=== PATIENT | male | born 1985 | race Caucasian/White ===

== ENCOUNTER 2022-09-20 18:47 | Inpatient (IN) | payer BC ==
[2022-09-20] MEDS ORDERED: Morphine 2 MG/ML VIAL SLOW IVP PRN (19:34)
[2022-09-20] MEDS ORDERED: Ipratropium/Albuterol 3 ML NEB NEB PRN (19:34)
[2022-09-20] MEDS ORDERED: TETANUS, DIPHTHERIA TOX,ADULT (TDVAX) 0.5 ML VIAL IM ONE (19:34)
[2022-09-20] MEDS ORDERED: Ondansetron PF 4 MG/2 ML Vial IVP PRN (19:34)
[2022-09-20] MEDS ORDERED: traMADol HCl 50 MG TAB PO PRN ×2 (19:37→21:57)
[2022-09-20] MEDS ORDERED: Bupivacaine/Epinephrine 0.25% 30 ML VIAL ONE (19:39)
[2022-09-20] MEDS ORDERED: Morphine 4 MG/ML VIAL ONE (19:46)
[2022-09-20] MEDS ORDERED: Ibuprofen 200 MG TAB PO PRN (19:47)
[2022-09-20] MEDS ORDERED: fentaNYL PF 100 MCG/2 ML SYRINGE ONE (19:50)
[2022-09-20] MEDS ORDERED: HYDROmorphone 0.5 MG/0.5 ML SYRINGE ONE ×2 (19:51→22:34)
[2022-09-20] MEDS ORDERED: Ondansetron PF 4 MG/2 ML Vial ONE (20:18)
[2022-09-20] MEDS ORDERED: NEOSTIGMINE 3 MG/3 ML SYR 3 MG/3 ML SYRINGE ONE (20:18)
[2022-09-20] MEDS ORDERED: ePHEDrine Sulfate 50 MG/10 ML VIAL ONE (20:18)
[2022-09-20] MEDS ORDERED: PROPOFOL 200 MG/20 ML VIAL ONE (20:18)
[2022-09-20] MEDS ORDERED: Rocuronium Bromide 10 MG/ML (10ML VIAL) ONE (20:18)
[2022-09-20] MEDS ORDERED: GLYCOPYRROLATE/PF 0.2 MG/ML VIAL ONE (20:18)
[2022-09-20] MEDS ORDERED: Ketorolac Tromethamine 30 MG/ML VIAL ONE (20:18)
[2022-09-20] MEDS ORDERED: Lidocaine 1% PF 5 ML VIAL ONE (20:18)
[2022-09-20] MEDS ORDERED: Dexamethasone 20 MG/5 ML VIAL ONE (20:18)
[2022-09-20] MEDS ORDERED: Famotidine/PF 20 mg/2ml Vial SLOW IVP SCH (21:00)
[2022-09-20] MEDS ORDERED: HYDROmorphone 2 MG/ML VIAL SLOW IVP PRN (21:14)
[2022-09-20] MEDS ORDERED: Ondansetron HCl/PF 4 MG/2 ML Vial IVP PRN (21:14)
[2022-09-20] MEDS ORDERED: Promethazine HCl 25 MG/ML VIAL IM PRN (21:14)
[2022-09-20] MEDS ORDERED: PACU-Morphine 4MG/ML VIAL SLOW IVP PRN (21:14)
[2022-09-20] MEDS ORDERED: Bacitracin Zinc Ointment 30 gm TUBE ONE (21:37)
[2022-09-20] MEDS ORDERED: Fentanyl 250 MCG/5 ML VIAL ONE (22:07)
[2022-09-20] MEDS: Acetaminophen 325 MG TAB PO SCH (23:19)
[2022-09-20] MEDS: Senokot S 8.6-50 MG TAB PO SCH (23:19)
[2022-09-21] MEDS: traMADol HCl 50 MG TAB PO SCH ×3 (00:09→11:30)
[2022-09-21] MEDS: Sodium Chloride 0.9% 1,000 ML IV SCH ×2 (00:11→06:10)
[2022-09-21 01:02] VITALS: BMI 30.4
[2022-09-21] MEDS: Acetaminophen 325 MG TAB PO SCH ×3 (02:02→13:18)
[2022-09-21 06:16] LABS: #Monocytes 0.4 thou/uL (0.11-0.59); #Neutrophils 9.2 thou/uL (1.40-6.50); %Basophils 0.1 % (0.0-1.0); %Eosinophils 0.1 % (0.0-10.0); %Lymphocytes 9.3 % (21.0-51.0); %Monocytes 3.7 % (0.0-10.0); %Neutrophils 86.8 % (42.0-75.0); Hemoglobin 14.3 g/dL (14.0-18.0); Mean Corpuscular HGB CONC 32.6 g/dL (32.0-36.0); Mean Corpuscular Hemoglobin 28.9 pg (27.0-31.0); Mean Corpuscular Volume 88.4 fl (78.0-98.0); Mean Platelet Volume 8.2 fL (7.4-10.4); Platelet Count 156 10x3/uL (130-400); RBC Distribution Width 12.3 % (11.5-14.5); Red Blood Cell (RBC) Count 4.96 mill/uL (4.70-6.10); White Blood Cell (WBC) Count 10.5 10x3/uL (4.8-10.8)
[2022-09-21 06:29] LABS: INR-International Normal Ratio 1.1; PTT 26.4 sec (22.9-36.1); Prothrombin Time 14.1 sec (12.0-14.7)
[2022-09-21 06:40] LABS: Anion Gap 13 mmol/L (10-20); BUN (Urea Nitrogen) 18 mg/dL (8.9-20.6); Calc. Creatinine Clearance 132 mL/min (70-130); Calcium 8.4 mg/dL (7.8-10.44); Carbon Dioxide 19 mmol/L (22-29); Chloride 106 mmol/L (98-107); Estimated GFR 102; Glucose 129 mg/dL (70-105); Potassium 4.4 mmol/L (3.5-5.1); Sodium 134 mmol/L (136-145)
[2022-09-21 08:30] VITALS: BP 97/55; TEMP 97.3
[2022-09-21] MEDS: Senokot S 8.6-50 MG TAB PO SCH (08:44)
[2022-09-21] MEDS ORDERED: Thiamine 100 MG TAB PO SCH (09:00)
[2022-09-21] MEDS ORDERED: Oxazepam 10 MG CAP PO SCH (09:00)
[2022-09-21] MEDS ORDERED: Folic Acid 1 MG TAB PO SCH (09:00)
== END 2022-09-21 13:57 | disposition home or self-care (01) | DRG 355 ==
LOC: ERS 18:47 → SURG A 20:14 → SDC/OP 20:19 → SURG A 23:09
PROVIDERS: ADMIT Surgery; ATTEND Surgery
PROC: 0WUF0JZ Supplement Abdominal Wall with Synthetic Substitute, Open Approach (ICD-10-PCS; principal; 2022-09-20)
DX: K42.0 Umbilical hernia with obstruction, without gangrene (principal); F17.210 Nicotine dependence, cigarettes, uncomplicated
CPT/HCPCS: 36415; 80048; 85025; 85610; 85730; 88302; 96374; C1889; J1100; J1170; J1885; J2270; J2405; J2704; J3010; J3490; S0028

== ENCOUNTER 2022-10-02 20:57 | Emergency (ER) | payer BC ==
[~2022-10-02 20:57] MED LIST: Iopamidol-370 76% 500 ML MDV (1 ML CHARGE) ONE
[2022-10-02] MEDS ORDERED: Ondansetron PF 4 MG/2 ML Vial ONE (21:25)
[2022-10-02] MEDS ORDERED: Morphine 4 MG/ML VIAL ONE (21:26)
[2022-10-02 21:31] LABS: #Eosinphils 0.2 thou/uL (0.0-0.7); #Lymphocytes 2.6 thou/uL (1.20-3.40); #Monocytes 0.7 thou/uL (0.11-0.59); #Neutrophils 6.8 thou/uL (1.40-6.50); %Basophils 0.4 % (0.0-1.0); %Eosinophils 1.5 % (0.0-10.0); %Lymphocytes 25.5 % (21.0-51.0); %Monocytes 6.7 % (0.0-10.0); Hemoglobin 15.2 g/dL (14.0-18.0); Mean Corpuscular HGB CONC 35.2 g/dL (32.0-36.0); Mean Corpuscular Hemoglobin 30.4 pg (27.0-31.0); Mean Corpuscular Volume 86.4 fl (78.0-98.0); Mean Platelet Volume 7.8 fL (7.4-10.4); Platelet Count 197 10x3/uL (130-400); RBC Distribution Width 11.9 % (11.5-14.5); Red Blood Cell (RBC) Count 4.99 mill/uL (4.70-6.10); White Blood Cell (WBC) Count 10.3 10x3/uL (4.8-10.8)
[2022-10-02 21:56] LABS: ALT (SGPT) 26 U/L (8-55); AST (SGOT) 20 U/L (5-34); Albumin 4.3 g/dL (3.5-5.0); Alkaline Phosphatase 66 U/L (40-110); Anion Gap 13 mmol/L (10-20); BUN (Urea Nitrogen) 18 mg/dL (8.9-20.6); Bilirubin, Total 0.3 mg/dL (0.2-1.2); Calc. Creatinine Clearance 0 mL/min (70-130); Calcium 9.5 mg/dL (7.8-10.44); Carbon Dioxide 22 mmol/L (22-29); Chloride 105 mmol/L (98-107); Estimated GFR 110; Globulin 3.2 g/dL (2.4-3.5); Glucose 83 mg/dL (70-105); Lipase 15 U/L (8-78); Protein, Total 7.5 g/dL (6.0-8.3); Sodium 136 mmol/L (136-145)
[2022-10-02 23:31] LABS: Bilirubin Negative (Negative); Blood, Urine Negative (Negative); Clarity Clear (Clear); Glucose, Urine (Dipstick) Normal (Negative); Ketone, Urine Negative (Negative); Leukocyte Negative Leu/uL (Negative); Nitrite Negative (Negative); Protein, Urine (Dipstick) Negative (Neg-Trace); Specific Gravity, Urine 1.019 (1.002-1.036); Urobilinogen Normal mg/dL (Less than 2)
== END 2022-10-02 23:30 | disposition home or self-care (01) ==
LOC: ERS 20:57
DX: K56.609 Unspecified intestinal obstruction, unspecified as to partial versus complete obstruction (principal); G89.18 Other acute postprocedural pain; F17.210 Nicotine dependence, cigarettes, uncomplicated
CPT/HCPCS: 74177; 80053; 81003; 83605; 83690; 85025; 96374; 96375; J2270; J2405